=== PATIENT | female | born 1990 | race Caucasian/White ===

== ENCOUNTER 2016-12-05 23:32 | Observation (INO) | payer SELFPAY ==
[~2016-12-05] VITALS: Ht 162.6 cm; Wt 90.7 kg
[~2016-12-05 23:32] MED LIST: GLYCOPYRROLATE 0.2 MG/ML VIAL IV ONE; NEOSTIGMINE 10 MG/10 ML VIAL IV ONE; PROPOFOL 20 ML VIAL IV ONE; ROCURONIUM 50 MG VIAL IV ONE; SUCCINYLCHOLINE 20 MG/ML VL IV ONE
[2016-12-05 23:50] VITALS: BP_SYST 117; RESP 20; TEMP 98.6
[2016-12-06] VITALS (20 sets, daily range): BP systolic 101–139; RESP 18–20; TEMP 97.6–98.6; Ht 162.6 cm; Wt 90.7 kg
[2016-12-06] MEDS ORDERED: MISOPROSTOL 100 MCG TAB PO ONE (00:05)
[2016-12-06] MEDS ORDERED: MISOPROSTOL 200 MCG TAB ONE (00:09)
[2016-12-06] MEDS ORDERED: OXYTOCIN IV ONE (00:35)
[2016-12-06] MEDS ORDERED: SODIUM CHLORIDE 0.9% IV ONE (00:35)
[2016-12-06] MEDS ORDERED: METOCLOPRAMIDE 10 MG/2 ML VIAL ONE (01:19)
[2016-12-06] MEDS ORDERED: FAMOTIDINE 20 MG INJ ONE (01:19)
[2016-12-06] MEDS ORDERED: METOCLOPRAMIDE 10 MG/2 ML VIAL IV PUSH ONE (01:20)
[2016-12-06] MEDS ORDERED: LACT RINGERS 1,000 ML IV SCH ×2 (01:20→02:30)
[2016-12-06] MEDS ORDERED: FAMOTIDINE 20 MG INJ IV ONE (01:20)
[2016-12-06] MEDS ORDERED: CARBOPROST 250 MCG/ML AMP ONE (01:29)
[2016-12-06] MEDS ORDERED: CEFAZOLIN (LD/OB) 100 ML IV ONE (01:29)
[2016-12-06] MEDS ORDERED: CEFAZOLIN 2000 MG/100 ML IV ONE (01:30)
[2016-12-06] MEDS ORDERED: MEPERIDINE 25 MG/ML IV PRN (02:10)
[2016-12-06] MEDS ORDERED: MORPHINE 4 MG/ML SYR IV PRN (02:10)
[2016-12-06] MEDS ORDERED: MORPHINE 2 MG/ML SYR IV PRN (02:10)
[2016-12-06] MEDS ORDERED: OXYCODONE 5 MG TAB PO PRN (02:10)
[2016-12-06] MEDS ORDERED: ONDANSETRON 4 MG VIAL IV PRN ×2 (02:10→02:30)
[2016-12-06] MEDS ORDERED: DILAUDID 1 MG/ML AMP IV PRN ×2 (02:10→02:30)
[2016-12-06] MEDS ORDERED: Ibuprofen 600 MG TAB PO SCH (02:30)
[2016-12-06] MEDS ORDERED: ONDANSETRON ODT 4 MG TAB PO PRN (02:30)
[2016-12-06] MEDS: MISOPROSTOL 100 MCG TAB PO SCH ×3 (04:10→12:14)
[2016-12-06] MEDS ORDERED: CARBOPROST 250 MCG/ML AMP IM ONE (04:35)
[2016-12-06] MEDS: Ibuprofen 600 MG TAB PO SCH ×2 (06:00→12:00)
== END 2016-12-06 11:30 | disposition home or self-care (01) ==
LOC: LDOP 23:32 → LD 12-06 01:25 → OB 12-06 05:25
PROVIDERS: ADMIT Obstetrics & Gynecology Reproductive Endocrinology; ATTEND Obstetrics & Gynecology Reproductive Endocrinology
DX: O72.2 Delayed and secondary postpartum hemorrhage (principal); Z37.0 Single live birth
CPT/HCPCS: 85025; 86850; 86900; 86901; 88305; 96361; 96365; 96372; 96375; 99215